=== PATIENT | female | born 1990 | race Two or more races ===

== ENCOUNTER 2018-01-07 22:00 | Emergency (ER) | payer BC, MEDICAID ==
[~2018-01-07] VITALS: Ht 154.9 cm; Wt 78.9 kg
[~2018-01-07 22:00] MED LIST: NAPROXEN250 MG PO
[2018-01-07 23:05] VITALS: BP 134/79
--- NOTE | 2018-01-07 23:21 | Emergency Room Report ---
History of Present Illness General Chief Complaint: Abdominal Pain Source: Patient Present Illness HPI Is a 27 female with no past medical history. Presents with right upper quadrant pain is been on off and she she gave 2 months ago. This one is been constant for few hours. Radiating to the back. One episode nausea and vomiting. Pain is 9 out of 10. Worse with palpation. Worse with eating. No fever chills. No family history of gallstone that she knows of. Allergies: Coded Allergies: No Known Allergies (Unverified , 01/07/18) Patient History Past Medical History: see triage record, old chart reviewed Past Surgical History: other Pertinent Family History: none Social History: Denies: smoking Last Menstrual Period: n/a Now: No - is breast-feeding Immunizations: other Reviewed Nursing Documentation: PMH: Agreed; PSxH: Agreed Nursing Documentation-PM Past Medical History: No Stated History Review of Systems Eye: Denies: eye pain, blurred vision ENT: Denies: ear pain, nose congestion, throat swelling Respiratory: Denies: cough, shortness of breath Cardiovascular: Denies: chest pain, palpitations Gastrointestinal: Reports: abdominal pain, nausea, vomiting; Denies: diarrhea Musculoskeletal: Denies: back pain, joint pain Skin: Denies: rash Neurological: Denies: headache, numbness Endocrine: Denies: increased thirst, increased urine Hematologic/Lymphatic: Denies: easy bruising All Other Systems: negative except mentioned in HPI Physical Exam Vital Signs Date Time Temp Pulse Resp B/P (MAP) Pulse Ox O2 Delivery O2 Flow Rate FiO2 01/07/18 22:59 98.4 70 16 134/79 98 Room Air 98.4 vitals normal Sp02 EP Interpretation: reviewed, normal General Appearance: well appearing, no apparent distress, alert, obese Head: normocephalic, atraumatic Eyes: bilateral eye PERRL, bilateral eye EOMI ENT: hearing grossly normal, normal pharynx Neck: full range of motion, supple, no meningismus Respiratory: chest non-tender, lungs clear, normal breath sounds Cardiovascular #1: regular rate, rhythm, no murmur Gastrointestinal: normal bowel sounds, no mass, no organomegaly, no bruit, non- distended, tenderness Musculoskeletal: back normal, gait/station normal, normal range of motion Psychiatric: mood/affect normal Skin: warm/dry Medical Decision Making Diagnostic Impression: Primary Impression: Cholelithiases Qualified Codes: K80.20 - Calculus of gallbladder without cholecystitis without obstruction Additional Impressions: Biliary colic Proteinuria Qualified Codes: R80.9 - Proteinuria, unspecified UTI (urinary tract infection) Qualified Codes: N30.00 - Acute cystitis without hematuria ER Course Is a 27-year-old female who presents with right upper quadrant pain and has gallstones. She is pain-free now. No evidence of any obstruction or pancreatitis. I did a bedside ultrasound and it showed gallbladder with multiple gallstones. Gallbladder wall is not thickened. Negative Doe sign. Common bile duct normal. Lab Results Impression labs with elevated LFTs Last Vital Signs Date Time Temp Pulse Resp B/P (MAP) Pulse Ox O2 Delivery O2 Flow Rate FiO2 01/07/18 22:59 98.4 70 16 134/79 98 Room Air 98.4 Status: improved Disposition: HOME, SELF-CARE Condition: Stable Scripts Cephalexin* (KEFLEX*) 500 Mg Capsule 500 MG ORAL TID, #21 CAP Prov: WESTON MACHADO M.D. 01/08/18 Hydrocodone/Acetaminophen 5-325* (HYDROCODONE/ACETAMINOPHEN 5-325*) 1 Each Tablet 1 TAB ORAL Q6H PRN for For Pain, #20 TAB 0 Refills Prov: WESTON MACHADO M.D. 01/08/18 Additional Instructions: Follow-up your doctor in 7 days. You may need a referral to see a surgeon. Return if worse. WESTON MACHADO M.D. Jan 07, 2018 23:21
[2018-01-07] MEDS ORDERED: Morphine Sulfate 4mg/ml Inj (IV USE ONLY) IVP ONE (23:30)
[2018-01-07] MEDS ORDERED: Ketorolac 30mg Inj IV ONE (23:30)
[2018-01-08 00:07] LABS: BASOPHILS % (AUTO) 0.6 % (0.0-2.0); EOSINOPHILS % (AUTO) 0.5 % (0.0-3.0); HEMATOCRIT 40.7 % (37.0-47.0); HEMOGLOBIN 13.3 G/DL (12.0-16.0); LYMPHOCYTES % (AUTO) 11.4 % (20.0-45.0); MEAN CORPUSCULAR VOLUME 82 FL (80-99); MONOCYTES % (AUTO) 5.9 % (1.0-10.0); NEUTROPHILS % (AUTO) 81.6 % (45.0-75.0); PLATELET COUNT 316 K/UL (150-450); RED BLOOD COUNT 4.95 M/UL (4.20-5.40); RED CELL DISTRIBUTION WIDTH 13.5 % (11.6-14.8); WHITE BLOOD COUNT 11.9 K/UL (4.8-10.8)
[2018-01-08 00:13] LABS: APPEARANCE,URINE CLEAR; BILIRUBIN, URINE 1+ (NEGATIVE); GLUCOSE, URINE (UA) NEGATIVE (NEGATIVE); KETONES,URINE 1+ (NEGATIVE); LEUKOCYTE ESTERASE ,URINE 1+ (NEGATIVE); NITRITE,URINE NEGATIVE (NEGATIVE); PH,URINE 5 (4.5-8.0); PROTEIN,URINE 2+ (NEGATIVE); UROBILINOGEN,URINE 4 MG/DL (0.0-1.0)
[2018-01-08 00:16] LABS: ANION GAP 12 mmol/L (5-15); BLOOD UREA NITROGEN 14 mg/dL (7-18); CALCIUM 8.9 MG/DL (8.5-10.1); CARBON DIOXIDE 23 MMOL/L (21-32); CHLORIDE 104 MMOL/L (98-107); CREATININE 0.9 MG/DL (0.55-1.30); POTASSIUM 3.6 MMOL/L (3.5-5.1); SODIUM 139 MMOL/L (136-145)
[2018-01-08 00:21] LABS: ALANINE AMINOTRANSFERASE 113 U/L (12-78); ALBUMIN 3.8 G/DL (3.4-5.0); ALBUMIN/GLOBULIN RATIO 0.8 (1.0-2.7); ALKALINE PHOSPHATASE 195 U/L (46-116); ASPARTATE AMINO TRANSFERASE 167 U/L (15-37); BILIRUBIN,TOTAL 0.8 MG/DL (0.2-1.0)
[2018-01-08 00:23] LABS: COLOR,URINE YELLOW
[2018-01-08] MEDS ORDERED: CEPHALEXIN500 MG ORAL (00:53)
[2018-01-08] MEDS ORDERED: HYDROCODON-ACE1 EA15 ORAL (00:53)
[2018-01-08 01:22] VITALS: BP 104/66
[2018-01-08 01:25] VITALS: BP 104/66
== END 2018-01-08 01:25 | disposition home or self-care (01) ==
LOC: EMR 23:46
DX: K80.20 Calculus of gallbladder without cholecystitis without obstruction (principal); R80.9 Proteinuria, unspecified; N39.0 Urinary tract infection, site not specified
CPT/HCPCS: 36415; 80053; 81003; 81025; 83690; 85025; 96361; 96374; 96375; 99284; J1885; J2270; J2405

== ENCOUNTER 2018-05-18 09:46 | Emergency (ER) | payer BC ==
[~2018-05-18] VITALS: Ht 154.9 cm; Wt 78.9 kg
[~2018-05-18 09:46] MED LIST changes: +CEPHALEXIN500 MG ORAL; +HYDROCODON-ACE1 EA15 ORAL
[2018-05-18 10:05] VITALS: BP 135/81
--- NOTE | 2018-05-18 10:15 | Emergency Room Report ---
History of Present Illness General Chief Complaint: General Complaint Source: Patient Present Illness HPI Patient presents with complaints of right upper quadrant and epigastric pain Reports that initially felt similar to when she had gallstones This started yesterday However she started having pain to the hip area as well on the right side In the last time she had pain like that she reports that she was Patient had vaginal delivery in December Denies any fevers or chills With regards to the patient's hip discomfort she reported that while putting on her jeans or doing other maneuvers of full flexion and extension of the hip it did cause some discomfort Patient also reports that she has had abnormal menstrual cycle since March Allergies: Coded Allergies: No Known Allergies (Unverified , 05/18/18) Patient History Past Medical History: see triage record Pertinent Family History: none Last Menstrual Period: on period Reviewed Nursing Documentation: PMH: Agreed; PSxH: Agreed Nursing Documentation-PMH Past Medical History: No History, Except For Review of Systems All Other Systems: negative except mentioned in HPI Physical Exam Vital Signs Date Time Temp Pulse Resp B/P (MAP) Pulse Ox O2 Delivery O2 Flow Rate FiO2 05/18/18 09:49 98.8 82 16 135/81 100 Room Air Sp02 EP Interpretation: reviewed, normal General Appearance: well appearing, no apparent distress Head: normocephalic, atraumatic Eyes: bilateral eye PERRL, bilateral eye EOMI ENT: hearing grossly normal, normal pharynx, TMs + canals normal, uvula midline Neck: full range of motion, supple, no meningismus, no bony tend Respiratory: lungs clear, normal breath sounds, no rhonchi, no respiratory distress, no retraction, no accessory muscle use Cardiovascular #1: normal peripheral pulses, regular rate, rhythm, no edema, no gallop, no JVD, no murmur Gastrointestinal: normal bowel sounds, non tender, soft, no mass, no organomegaly, non-distended, no guarding, no hernia, no pulsatile mass, no rebound Genitourinary: no CVA tenderness Musculoskeletal: normal inspection Neurologic: oriented x3, responsive, employee development manager III-XII nml as tested, motor strength/ tone normal, sensory intact Psychiatric: mood/affect normal Skin: normal color, no rash, warm/dry, palpation normal Lymphatic: normal inspection, no adenopathy Medical Decision Making Diagnostic Impression: Primary Impression: Abdominal pain ER Course With the history exam and presentation, multiple differentials considered, including but not limited to appendicitis, gastritis, cholecystitis, diverticulitis Patient's blood work is within normal limits On reevaluation patient has felt significantly improved Patient did have some complaints of right-sided hip pain She is however able to have appropriate movement of the hip, does not appear to be a septic joint Did not feel acute imaging would provide any benefit And patient is dispositioned for close outpatient follow-up Labs Test 05/18/18 10:13 White Blood Count 9.1 K/UL (4.8-10.8) Red Blood Count 5.27 M/UL (4.20-5.40) Hemoglobin 15.3 G/DL (12.0-16.0) Hematocrit 44.7 % (37.0-47.0) Mean Corpuscular Volume 85 FL (80-99) Mean Corpuscular Hemoglobin 29.0 PG (27.0-31.0) Mean Corpuscular Hemoglobin Concent 34.2 G/DL (32.0-36.0) Red Cell Distribution Width 12.1 % (11.6-14.8) Platelet Count 321 K/UL (150-450) Mean Platelet Volume 7.8 FL (6.5-10.1) Neutrophils (%) (Auto) 66.4 % (45.0-75.0) Lymphocytes (%) (Auto) 27.6 % (20.0-45.0) Monocytes (%) (Auto) 3.9 % (1.0-10.0) Eosinophils (%) (Auto) 1.3 % (0.0-3.0) Basophils (%) (Auto) 0.8 % (0.0-2.0) Urine Color Pale yellow Urine Appearance Clear Urine pH 6.5 (4.5-8.0) Urine Specific [place] 1.005 (1.005-1.035) Urine Protein Negative (NEGATIVE) Urine Glucose (UA) Negative (NEGATIVE) Urine Ketones Negative (NEGATIVE) Urine Blood Negative (NEGATIVE) Urine Nitrite Negative (NEGATIVE) Urine Bilirubin Negative (NEGATIVE) Urine Urobilinogen Normal MG/DL (0.0-1.0) Urine Leukocyte Esterase Negative (NEGATIVE) Urine HCG, Qualitative Negative (NEGATIVE) Sodium Level 139 MMOL/L (136-145) Potassium Level 3.7 MMOL/L (3.5-5.1) Chloride Level 105 MMOL/L (98-107) Carbon Dioxide Level 25 MMOL/L (21-32) Anion Gap 10 mmol/L (5-15) Blood Urea Nitrogen 13 mg/dL (7-18) Creatinine 0.8 MG/DL (0.55-1.30) Estimat Glomerular Filtration Rate > 60 mL/min (>60) Glucose Level 106 MG/DL (74-106) Calcium Level 9.4 MG/DL (8.5-10.1) Total Bilirubin 0.4 MG/DL (0.2-1.0) Aspartate Amino Transf (AST/SGOT) 20 U/L (15-37) Alanine Aminotransferase (ALT/SGPT) 26 U/L (12-78) Alkaline Phosphatase 103 U/L (46-116) Total Protein 9.1 G/DL (6.4-8.2) Albumin 3.8 G/DL (3.4-5.0) Globulin 5.3 g/dL Albumin/Globulin Ratio 0.7 (1.0-2.7) Lipase 163 U/L (73-393) Last Vital Signs Date Time Temp Pulse Resp B/P (MAP) Pulse Ox O2 Delivery O2 Flow Rate FiO2 05/18/18 09:49 98.8 82 16 135/81 100 Room Air Status: improved Disposition: HOME, SELF-CARE Condition: Improved Scripts Hydrocodone Bit/Acetaminophen 5-325* (NORCO 5-325*) 1 Each Tablet 1 TAB ORAL Q6H PRN for For Pain, #10 TAB 0 Refills Prov: Martin Gardiner DO 05/18/18 Ibuprofen* (MOTRIN*) 600 Mg Tablet 600 MG ORAL Q8H PRN for For Pain, #20 TAB 0 Refills Prov: Martin Gardiner DO 05/18/18 Referrals: [facility],REFERRING (PCP) Additional Instructions: Patient is provided with the discharge instructions notified to follow up with primary doctor in the next 2-3 days otherwise return to the er with any worsening symptoms. Please note that this report is being documented using [employer] technology. This can lead to erroneous entry secondary to incorrect interpretation by the dictating instrument. Martin Gardiner DO May 18, 2018 10:15
[2018-05-18 10:42] LABS: APPEARANCE,URINE CLEAR; BASOPHILS % (AUTO) 0.8 % (0.0-2.0); BILIRUBIN, URINE NEGATIVE (NEGATIVE); COLOR,URINE PALE YELLOW; EOSINOPHILS % (AUTO) 1.3 % (0.0-3.0); GLUCOSE, URINE (UA) NEGATIVE (NEGATIVE); HEMATOCRIT 44.7 % (37.0-47.0); HEMOGLOBIN 15.3 G/DL (12.0-16.0); KETONES,URINE NEGATIVE (NEGATIVE); LEUKOCYTE ESTERASE ,URINE NEGATIVE (NEGATIVE); LYMPHOCYTES % (AUTO) 27.6 % (20.0-45.0); MEAN CORPUSCULAR VOLUME 85 FL (80-99); MONOCYTES % (AUTO) 3.9 % (1.0-10.0); NEUTROPHILS % (AUTO) 66.4 % (45.0-75.0); NITRITE,URINE NEGATIVE (NEGATIVE); PH,URINE 6.5 (4.5-8.0); PLATELET COUNT 321 K/UL (150-450); PROTEIN,URINE NEGATIVE (NEGATIVE); RED BLOOD COUNT 5.27 M/UL (4.20-5.40); RED CELL DISTRIBUTION WIDTH 12.1 % (11.6-14.8); UROBILINOGEN,URINE NORMAL MG/DL (0.0-1.0); WHITE BLOOD COUNT 9.1 K/UL (4.8-10.8)
[2018-05-18 10:53] LABS: ANION GAP 10 mmol/L (5-15); BLOOD UREA NITROGEN 13 mg/dL (7-18); CALCIUM 9.4 MG/DL (8.5-10.1); CARBON DIOXIDE 25 MMOL/L (21-32); CHLORIDE 105 MMOL/L (98-107); CREATININE 0.8 MG/DL (0.55-1.30); POTASSIUM 3.7 MMOL/L (3.5-5.1); SODIUM 139 MMOL/L (136-145)
[2018-05-18 10:58] LABS: ALANINE AMINOTRANSFERASE 26 U/L (12-78); ALBUMIN 3.8 G/DL (3.4-5.0); ALBUMIN/GLOBULIN RATIO 0.7 (1.0-2.7); ALKALINE PHOSPHATASE 103 U/L (46-116); ASPARTATE AMINO TRANSFERASE 20 U/L (15-37); BILIRUBIN,TOTAL 0.4 MG/DL (0.2-1.0)
[2018-05-18] MEDS ORDERED: Ketorolac 30mg Inj IV ONE (11:00)
[2018-05-18] MEDS ORDERED: Norco 5mg/325mg tab ORAL ONE (11:00)
[2018-05-18] MEDS ORDERED: NKM (11:10)
[2018-05-18] MEDS ORDERED: Morphine Sulfate 4mg/ml Inj (IV/IM USE ONLY) IVP ONE (11:15)
[2018-05-18] MEDS ORDERED: IBUPROFEN600 MG ORAL (11:36)
[2018-05-18] MEDS ORDERED: NORCO 5-325 TA1 EACH ORAL (11:36)
[2018-05-18 12:15] VITALS: BP 133/80
== END 2018-05-18 12:23 | disposition home or self-care (01) ==
LOC: EMR 09:59
DX: R10.12 Left upper quadrant pain (principal); R10.13 Epigastric pain; M25.551 Pain in right hip
CPT/HCPCS: 36415; 80053; 81003; 81025; 83690; 85025; 96361; 96374; 96375; 99284; J1885; J2405

== ENCOUNTER 2020-06-19 10:59 | Emergency (ER) | payer BC, OTHER ==
[~2020-06-19] VITALS: Ht 154.9 cm; Wt 87.1 kg
[~2020-06-19 10:59] MED LIST changes: +IBUPROFEN600 MG ORAL; +NKM; +NORCO 5-325 TA1 EACH ORAL
[2020-06-19 11:05] VITALS: BP 116/66
--- NOTE | 2020-06-19 11:25 | NUR ---
ED Nurse Note: Patient presents to ER due to rash on the right knee x 8 days and bump with red spot on the right forehead, lateral side. Reports no fever, chills, N or V, but c/o headache. Patient attempted to drain the bump. Patient awake, alert, oriented x 4. Regular, unlabored breathing noted. Sitting in chair without facial grimacing or guarding.
[2020-06-19] MEDS ORDERED: TYLENOL EXTRA500 MG ORAL (11:31)
[2020-06-19] MEDS ORDERED: BENADRYL25 M3 PO (11:31)
[2020-06-19] MEDS ORDERED: CEPHALEXIN500 MG ORAL (11:31)
--- NOTE | 2020-06-19 11:31 | Emergency Room Report ---
History of Present Illness General Chief Complaint: Skin Rash/Abscess Source: Patient Present Illness HPI 30F no PMHx c/o spider bite x 2. Patient has a picture of the spider she found in her bed. She has a lesion to the lateral aspect of her R forehead and R superior anterior knee. She states that the R eyebrow lesion came to a head a few days ago and she tried to pop it but it was unsuccessful. States it feels swollen. Also c/o pain to the anterior R anterior knee but no swelling. Denies fever, AG, photophobia, neck pain, vision changes. Tdap is UTD. The patient's symptoms were gradual onset, severity was moderate, duration since several days. Quality: Past medical history: Denies Past surgical history: Denies Smoking: Denies Alcohol use: Denies Drug use: Denies Review of systems: CONST: No fevers or chills, No night sweats PULMONARY: No productive cough, No shortness of breath CARDIAC: No chest pain, No palpitations GI: No vomiting, No diarrhea , No melena_or_BRBPR : No dysuria, No hematuria, No discharge NEURO: No new_focal_weakness_or_numbness, No confusion, No vision changes 14 point Review of Systems is otherwise negative except per HPI Physical Exam: GENERAL: Awake_alert_ nontoxic, no acute distress Spo2 98% on RA -normal EYES: Extraocular muscles are intact. Conjunctivae clear. Lids without swelling. No proptosis. No hypopion. No hyphema. No nystagmus. ENT: External nose and ear normal_in_appearance. Oropharynx clear. Head_atraumatic, Moist_oral_mucosa NECK: No JVD. No meningismus. No thyromegaly. Supple. Trachea midline RESP: Normal respiratory effort. Symmetric rise. No stridor. Clear_to_auscultation_No_rales_No_wheezes CARDIAC: Regular rate and regular rhytm. No_significant pedal edema. ABDOMEN: Soft. Nondistended. Nontender_No_rebound_or_guarding. MSK: Normal muscle tone, without rigidity. Extremities without asymmetric deformity or swelling. SKIN: Scabbed R pinpoint lesion to the lateral R eye brow with trace surrounding cellulitis. No significant edema. No palpable induration or fluctuance. No crep itus. R anterior knee pinpoint lesion, mildly red. No warmth. Does not track into the joint. Warm and dry. No visible cyanosis or pallor. No significant pain with ROM of R knee NEUROLOGIC: Alert, oriented x3. Motor_and_sensation_grossly_intact. No truncal ataxia. Gait_normal Psych: Normal mood and affect, normal judgment and insight - COORDINATION OF CARE Case was discussed with: Patient Medical Decision Making/Plan: DDx: cellulitis vs folliculitis vs hemoptera sting vs abscess Initial VSS stable. Airway is intact with no stridor, drooling, or increased WOB. Patient appears to be presenting with mild insect/spider bite x 2. Doubt brown recluse. Doubt black . No discrete abscess identified. No evidence of septic joint or preseptal/postceptal cellulitis. The findings are minimal and due to nonprogression of symptoms here, the patient is safe to discharge home. The patient feels comfortable with plan and will return immediately if symptoms begin to worsen. Patient will be discharged with a keflex and benadryl. Patient was instructed to wash all bedding and to exterminate her house of insects/spiders. She states she has a window that is broken and this is their likely entry into her apartment so I encouraged her to get it fixed arcelia. Pertinent results reviewed with the patient. I educated the patient on the current treatment plan including the risks, benefits, and alternatives. I also discussed the extent and limitations of the current evaluation. The patient expressed understanding and agreement with plan. I recommended PMD follow-up within 1-2 days. Also advised that the patient return to the Emergency Department as soon as possible if they experience any new, persistent, or worsening symptoms. Allergies: Coded Allergies: No Known Allergies (Unverified , 05/18/18) COVID-19 Screening Contact w/high risk pt: No Experienced COVID-19 symptoms?: No COVID-19 Testing performed CUSTOMER SERVICE AGENT: No Patient History Last Menstrual Period: 06/18/20 Nursing Documentation-[facility] Past Medical History: No History, Except For Physical Exam Vital Signs Date Time Temp Pulse Resp B/P (MAP) Pulse Ox O2 Delivery O2 Flow Rate FiO2 06/19/20 11:05 97.9 96 20 116/66 (83) 96 Sp02 EP Interpretation: reviewed Medical Decision Making Diagnostic Impression: Primary Impression: Rash and other nonspecific skin eruption Additional Impression: Spider bite Last Vital Signs Date Time Temp Pulse Resp B/P (MAP) Pulse Ox O2 Delivery O2 Flow Rate FiO2 06/19/20 11:05 97.9 96 20 116/66 (83) 96 Disposition: HOME, SELF-CARE Admit Decision Time: 11:30 Condition: Stable Scripts Diphenhydramine HCl (Benadryl) 25 Mg Capsule 25 MG PO TID for iching for 5 Days, #15 CAP Prov: Marie Macias D.O. 06/19/20 Acetaminophen* (TYLENOL EXTRA STRENGTH*) 500 Mg Tablet 500 MG ORAL Q8H PRN for Prn Headache/Temp > 101, #30 TAB 0 Refills Prov: Marie Macias D.O. 06/19/20 Cephalexin* (KEFLEX*) 500 Mg Capsule 500 MG ORAL EVERY 12 HOURS, #14 CAP 0 Refills Prov: Marie Macias D.O. 06/19/20 Patient Instructions: Spider Bite Additional Instructions: Instructions for patient/hand tacker: Follow up with your physician in 1-2 days for wound check Follow-up with your doctor sooner if your condition requires a more timely clinical reevaluation. Return to the emergency department immediately if you feel that your condition is worsening or if you have any new or concerning symptoms. Review your discharge instructions and take any prescriptions given as instructed. [facility] PROVIDES FREE OR LOW-COST HEALTH SERVICES TO PEOPLE WHO CAN SHOW PROOF THAT THEY LIVE IN [facility]. TO FIND MORE CLINICS PARTNERED WITH [facility] TO PROVIDE SERVICE, PLEASE CALL . Marie Macias D.O. Jun 19, 2020 11:31
--- NOTE | 2020-06-19 11:38 | NUR ---
ED Nurse Note: Patient is being discharged from medical care. Patient awake, alert, oriented x 4. Regular, unlabored breathing noted. D/C instruction and prescription given to patient. Patient verbalized understanding of it. Patient ambulated out with steady gait. All questions were answered.
== END 2020-06-19 11:36 | disposition home or self-care (01) ==
LOC: EMR 11:20
DX: T63.301A Toxic effect of unspecified spider venom, accidental (unintentional), initial encounter (principal); L25.8 Unspecified contact dermatitis due to other agents; Y92.013 Bedroom of single-family (private) house as the place of occurrence of the external cause
CPT/HCPCS: 99282